=== PATIENT | male | born 1940 | race African-American/Black ===

== ENCOUNTER 2021-10-12 09:49 | Outpatient (CLI) | payer MEDICARE, SELFPAY ==
--- NOTE | ~2021-10-12 | XR_ITS ---
EXAMINATION: XR barium swallow modified EXAM DATE: 10/12/2021 10:25 INDICATION: Dysphagia following cerebral infarction. TECHNIQUE: Modified barium esophagram was performed by speech pathologist with radiologist Dr. Magdy Chapa present to administered fluoroscopy. Speech pathologist administered barium in varying consis tencies as per speech pathologist documentation. This was recorded on tape. There was total fluorosc opic time of 1.8. The DAP for this procedure was 1.6 Gycm2. A total of 2 images sent to PACS from t he exam. FINDINGS: Oral stage: Reduced lingual movement. Pharyngeal phase: Dysfunction. Laryngeal penetration: Demonstrated. Aspiration: Demonstrated, silent. Laryngeal sensitivity: Absent. IMPRESSION: Aspiration demonstrated; Please refer to speech pathologist findings and specific feedi ng recommendations. Reviewed, dictated and finalized at location A. [employer]ATOR IMPRESSION: Aspiration demonstrated; Please refer to speech pathologist findi ngs and specific feeding recommendations.
--- NOTE | 2021-10-13 16:49 | STOPEVAL ---
MODIFIED BARIUM SWALLOW EVALUATION: Thank you for referring Carmine Taylor to [facility].? Outpatient Past Medical History Past Medical History Source of Past Medical History [facility] Records Neurological History Hx Cerebrovascular Accident (CVA) Yes Hx Dementia Yes Hx Other Neurological Disorders Yes: encephalopathy Cardiovascular History Hx Coronary Artery Disease Yes Hx Hypertension Yes Hx Peripheral Vascular Disease Yes Gastrointestinal History Hx Gastroesophageal Reflux Disease Yes Genitourinary History Hx Other Genitourinary Disorders Yes: chronic kidney disease Musculoskeletal History Hx Other Musculoskeletal Disorders Yes: cervicalgia Prior Level of Function Home Setting Home Type [facility] Prior Swallow Level Prior Intake Method Oral Prior Diet Minced and Moist (Level 5 Diet) Prior Liquid Consistency Mildly Thick (Level 2 Diet) Modified Barium Swallow Evaluation Recent Swallowing History Reports Dysphagia Yes Duration of Dysphagia since CVA ( History of Related Medical Diagnosis CVA Reported Difficult Consistencies Thin Liquids,Solids Intake Method Prior to Swallow Oral Evaluation Diet Prior to Swallow Evaluation Minced and Moist, Level 5 Liquid Consistency Prior to Swallow Mildly Thick (2) Evaluation Consistency Mildly Thick Uncontrolled 1 Method of Presentation Cup Oral Preparatory Symptoms Within Functional Limits Oral Phase Symptoms Within Functional Limits Pharyngeal Phase Symptoms Laryngeal Penetration,Reduced Laryngeal Elevation,Reduced Lingual Pressure,Residue in Valleculae,Residue/Pyriform Sinus Severity of Vallecular Residue Mild - 5-25 % Epiglottic Ligament Visable Severity of Pyriform Sinus Residue Mild - 5-25 % Up Wall to Quarter Full 8 Point Laryngeal Penetration-Aspiration Material Enters the Airway, Scale Remains Above Vocal Folds, is Ejected Pharyngeal Phase Comments vallecular and pyriform sinus residue was cleared when pt independently dry swallowed; laryngeal penetration appeared to be ejected -- without aspiration. Cervical/Esophageal Symptoms Within Functional Limits Thin Uncontrolled 1 Method of Presentation Cup Oral Preparatory Symptoms Loss of Bolus Control, Premature Spill Posterior Oral Phase Symptoms Premature Spillage, Uncontrolled Bolus Pharyngeal Phase Symptoms
== END 2021-10-12 09:50 | disposition home or self-care (01) ==
LOC: ANHIMG 09:57
PROVIDERS: PCP Internal Medicine; Visit Provider Internal Medicine
DX: R13.10 Dysphagia, unspecified (principal)
CPT/HCPCS: 92611